=== PATIENT | male | born 1990 | race Caucasian/White ===

== ENCOUNTER 2024-05-10 11:57 | Emergency (ER) | payer OTHER ==
[2024-05-10] MEDS ORDERED: HYDROcodone/Acetaminophen 5/325 mg Tablet ONE (12:37)
== END 2024-05-10 13:55 | disposition home or self-care (01) ==
LOC: CSHERS 11:57
DX: M25.561 Pain in right knee (principal); M79.604 Pain in right leg; F17.210 Nicotine dependence, cigarettes, uncomplicated

== ENCOUNTER 2024-05-18 15:11 | Emergency (ER) | payer OTHER ==
[2024-05-18] MEDS ORDERED: Ketorolac Tromethamine 30 MG (1 mL) VIAL ONE (16:48)
[2024-05-18 17:57] LABS: #Basophils 0.04 10x3/uL (0.0-0.2); #Eosinphils 0.15 10x3/uL (0.0-0.5); #Monocytes 0.82 10x3/uL (0.0-1.1); #Neutrophils 2.87 10x3/uL (1.5-8.4); %Basophils 0.8 % (0.0-2.0); %Eosinophils 2.9 % (0.0-6.0); %Lymphocytes 25.4 % (18.0-47.0); %Monocytes 15.8 % (0.0-10.0); %Neutrophils 55.1 % (40.0-75.0); Hematocrit 37.3 % (38.8-50.0); Hemoglobin 13.4 g/dL (13.5-17.5); Mean Corpuscular HGB CONC 35.9 g/dL (32.0-36.0); Mean Corpuscular Hemoglobin 35.7 pg (27.0-33.0); Mean Corpuscular Volume 99.5 fL (81.2-95.1); Mean Platelet Volume 10.4 fL (7.4-10.4); Platelet Count 127 10x3/uL (150-450); RBC Distribution Width 13.2 % (11.5-14.5); Red Blood Cell (RBC) Count 3.75 10x6/uL (4.32-5.72); White Blood Cell (WBC) Count 5.2 10x3/uL (3.5-10.5)
[2024-05-18] MEDS ORDERED: Clindamycin/D5W 900 MG in Premix 1 BAG IVPB SCH (19:30)
== END 2024-05-18 21:07 | disposition home or self-care (01) ==
LOC: CSHERS 15:11
DX: L03.115 Cellulitis of right lower limb (principal); F17.210 Nicotine dependence, cigarettes, uncomplicated; F17.290 Nicotine dependence, other tobacco product, uncomplicated
CPT/HCPCS: 36415; 83605; 85025; 86140; 87040; 96372; 96374; J1885; J3490